=== PATIENT | male | born 1985 | race Caucasian/White ===

== ENCOUNTER 2024-11-18 00:21 | Emergency (ER) | payer SELFPAY ==
[~2024-11-18] VITALS: Ht 172.7 cm; Wt 78.9 kg
[2024-11-18 00:28] VITALS: TEMP 37.1; O2SAT 98
[2024-11-18 01:09] LABS: BASOPHILS % 0.3 % (0.0-2.0); EOSINOPHILS % 0.1 % (0.0-5.0); HEMATOCRIT. 43.1 % (42.0-52.0); HEMOGLOBIN. 14.7 g/dL (14.0-18.0); LYMPHOCYTES % 12.8 % (20.0-50.0); MEAN PLATELET VOLUME 7.2 fl (7.4-10.4); MONOCYTES % 4.9 % (2.0-8.0); NEUTROPHILS % 81.9 % (40.0-76.0); PLATELET 369 x1000/uL (130-400); RED BLOOD CELL COUNT 4.96 mill/uL (4.7-6.1); RED CELL DISTRIBUTION WIDTH 13.2 % (11.6-14.6)
[2024-11-18 01:10] LABS: CLARITY URINE CLOUDY (CLEAR); COLOR URINE YELLOW (YELLOW); GLUCOSE URINE NEGATIVE (NEGATIVE); KETONES URINE NEGATIVE (NEGATIVE); LEUKOCYTE ESTERASE URINE NEGATIVE (NEGATIVE); NITRITE URINE NEGATIVE (NEGATIVE); OCCULT BLOOD URINE NEGATIVE (NEGATIVE); PH URINE 7.5 (4.5-8.0); PROTEIN URINE NEGATIVE (NEGATIVE); SPECIFIC GRAVITY URINE 1.018 (1.005-1.030); UROBILINOGEN URINE 0.2 E.U./dL (0.2-1.0)
[2024-11-18 01:21] LABS: AMORPHOUS SEDIMENT URINE 3+ /lpf; BACTERIA URINE 1+; RBC URINE NONE SEEN /hpf (0-2); SQUAMOUS EPITHELIAL CELL URINE NONE SEEN /lpf (RARE/1+); WBC URINE NONE SEEN /hpf (0-2)
[2024-11-18 01:22] LABS: CREATININE 0.9 mg/dL (0.6-1.3)
[2024-11-18] MEDS: ONDANSETRON HCL 4MG TABLET PO ONE ×2 (01:22→03:08)
[2024-11-18 01:23] LABS: UREA NITROGEN BLOOD 10 mg/dL (9-23)
[2024-11-18 01:24] LABS: ASPARTATE AMINOTRANSFERASE 22 IU/L (<34)
[2024-11-18 01:25] LABS: BILIRUBIN DIRECT 0.2 mg/dL (<=3.0); BILIRUBIN TOTAL 0.7 mg/dL (0.1-1.0); PROTEIN TOTAL 7.2 g/dL (6.0-8.3)
[2024-11-18] MEDS ORDERED: MAG-55 MT (02:08)
[2024-11-18] MEDS ORDERED: FAMO-135 MT (02:08)
[2024-11-18] MEDS: FAMOTIDINE 20MG TABLET PO ONE (02:45)
[2024-11-18] MEDS: MAGNESIUM/ALUMINUM HYDROXIDE/SIMETHICONE 30ML UDC PO ONE (02:45)
[2024-11-18 03:10] VITALS: BP 139/90; PULSE 78; RESP 18; O2SAT 98
== END 2024-11-18 03:23 | disposition home or self-care (01) ==
LOC: ER 00:21
DX: K29.70 Gastritis, unspecified, without bleeding (principal)
CPT/HCPCS: 99284; 80076; 80048; 81003; 83690; 85025; 36415; Q0162